=== PATIENT | female | born 1935 | race Caucasian/White ===

== ENCOUNTER 2020-01-22 07:41 | Day surgery (SDC) | payer MEDICARE, OTHER ==
[2020-01-21 14:49] LABS: ALANINE AMINOTRANSFERASE 20 U/L (12-78); ALBUMIN 3.6 G/DL (3.4-5.0); ALBUMIN/GLOBULIN RATIO 0.9 (1.1-1.5); ALKALINE PHOSPHATASE 92 IU/L (46-116); ANION GAP 9 (8-16); ASPARTATE AMINO TRANSFERASE 17 U/L (10-37); BILIRUBIN,TOTAL 0.4 MG/DL (0.1-1.0); BLOOD UREA NITROGEN 35 MG/DL (7-18); BUN/CREATININE RATIO 22.6 (6.6-38.0); CALCIUM 9.4 MG/DL (8.5-10.1); CHLORIDE 102 MMOL/L (99-107); CREATININE 1.55 MG/DL (0.40-0.90); GLUCOSE 96 MG/DL (70-104); POTASSIUM 4.4 MMOL/L (3.5-5.1); SODIUM 135 MMOL/L (135-145); TOTAL CARBON DIOXIDE 23.7 MMOL/L (24-32); TOTAL PROTEIN 7.5 G/DL (6.4-8.2); eGFR 32 ML/MIN
[~2020-01-22] VITALS: Ht 170.2 cm; Wt 114.3 kg
[2020-01-22 06:45] VITALS: BP 161/87
[2020-01-22] MEDS ORDERED: sodium bicarbonate (8.4%) inj. 150 MEQ in dextrose 5%-water 850 ML IV SCH (08:55)
[2020-01-22] MEDS ORDERED: sodium bicarbonate (8.4%) inj. 150 MEQ in dextrose 5%-water 1,000 ML IV SCH (09:10)
[2020-01-22] MEDS ORDERED: iohexol 350MG/ML 100ml bottle IV ONE (11:01)
[2020-01-22] MEDS ORDERED: FLEC100T35 PO (15:14)
[2020-01-22] MEDS ORDERED: CALC1TAB PO (15:14)
[2020-01-22] MEDS ORDERED: BIOT5000 PO (15:14)
[2020-01-22] MEDS ORDERED: METO25TA6 PO (15:14)
[2020-01-22] MEDS ORDERED: OCUVITE PO (15:14)
[2020-01-22] MEDS ORDERED: RALO60TA13 PO (15:14)
[2020-01-22] MEDS ORDERED: OMEP40CA13 PO (15:14)
[2020-01-22] MEDS ORDERED: LISI10TA4 PO (15:14)
== END 2020-01-22 16:30 | disposition home or self-care (01) ==
LOC: SSTAY O 07:41
PROVIDERS: ATTEND Family Medicine
DX: R06.02 Shortness of breath (principal); I26.99 Other pulmonary embolism without acute cor pulmonale
CPT/HCPCS: 36415; 71275; 80053; Q9967

== ENCOUNTER 2024-12-01 12:41 | Outpatient (CLI) | payer MEDICARE, OTHER ==
[~2024-12-01 12:41] MED LIST: BIOT5000 PO; CALC1TAB PO; FLEC100T35 PO; LISI10TA27 PO; LOP25T PO; OCUVITE PO; OMEP40CA21 PO; RALO60TA13 PO
--- NOTE | 2024-12-01 13:37 | RADIOLOGY REPORT ---
EXAM: DI KNEE, COMP 4 VW MIN CLINICAL INDICATION: LEFT KNEE JOINT PAIN TECHNIQUE: DI KNEE, COMP 4 VW MIN Comparison: None FINDINGS/IMPRESSION: There is no evidence of acute fracture or dislocation. Moderate left knee osteoarthritis. The alignment is anatomical. There is no radiopaque foreign body.
--- NOTE | 2024-12-01 13:37 | RADIOLOGY REPORT ---
EXAM: DI ANKLE, COMPLETE(3VW MIN), DI FOOT, COMPLETE (3VW MIN) CLINICAL INDICATION: LEFT JOINT ANKLE AND FOOT PAIN TECHNIQUE: DI ANKLE, COMPLETE(3VW MIN), DI FOOT, COMPLETE (3VW MIN) Comparison: None FINDINGS/IMPRESSION: There is no evidence of acute fracture or dislocation. ORIF of the distal tibia and fibula
== END 2024-12-01 23:59 | disposition home or self-care (01) ==
LOC: RAD 12:41
PROVIDERS: ATTEND Physician Assistant
DX: M17.12 Unilateral primary osteoarthritis, left knee (principal); M25.562 Pain in left knee; M25.572 Pain in left ankle and joints of left foot
CPT/HCPCS: 73564; 73610; 73630